=== PATIENT | male | born 1995 | race African-American/Black ===

== ENCOUNTER 2022-01-09 10:36 | Emergency (ER) | payer OTHER ==
[2022-01-09] MEDS ORDERED: ONDANSETRON 4 MG/2 ML VIAL IVP STA (10:57)
[2022-01-09] MEDS ORDERED: SODIUM CHLORIDE 0.9% 1,000 ML IV STA (10:57)
[2022-01-09] MEDS ORDERED: KETOROLAC 15 MG/ML 1 ML VIAL IVP STA (10:57)
--- NOTE | 2022-01-09 11:01 | ED ---
General Adult HPI - General Stated complaint: Testicular & back pain Time Seen by Provider: 01/09/22 10:46 Source: patient, RN notes reviewed, old records reviewed - History of Present Illness Initial comments: This is a 26-year-old male who presents emergency Department the aunt was because he had sudden onset of severe right testicle pain as well as right back pain. Patient states she was just lying around when it occurred patient denies any similar symptoms in the past. Patient denies any dysuria hematuria or urinary frequency patient states he feels the urge to urinate but is unable to cope. Patient states is no pain with palpating the testicle. He does not notice any swelling of the testicle or any masses. Patient denies any fever chills. Patient denies any abdominal pain. Patient states he started vomiting as the pain was so severe earlier. Patient states remains nauseated. - Related Data Home Medications Medication Instructions Recorded Confirmed Albuterol Nebulized [Ventolin 2.5 mg INHALATION RT-Q6H PRN 08/28/13 02/27/15 Nebulized] Fluticasone Propionate [Flovent 1 puff IH RT-BID PRN 08/28/13 02/27/15 Diskus] Triamcinolone 0.1% Cream [Kenalog 1 applic TOPICAL BID PRN 02/27/15 02/27/15 0.1% Cream] Previous Rx's Medication Instructions Recorded Ketorolac [Toradol] 10 mg PO Q6HR #15 tab 01/09/22 Tamsulosin [Flomax] 0.4 mg PO DAILY #10 cap 01/09/22 Allergies Allergy/AdvReac Type Severity Reaction Status Date / Time Fish Containing Products Allergy Anaphylaxis Verified 02/27/15 18:14 Review of Systems ROS Statement: Those systems with pertinent positive or pertinent negative responses have been documented in the HPI. ROS Other: All systems not noted in ROS Statement are negative. Past Medical History Past Medical History: Asthma History of Any Multi-Drug Resistant Organisms: None Reported Past Surgical History: No Surgical Hx Reported Past Psychological History: No Psychological Hx Reported Past Alcohol Use History: None Reported Past Drug Use History: None Reported General Exam - General Exam Comments Initial Comments: GENERAL: Patient is well-developed and well-nourished. Patient is nontoxic and well- hydrated and is in moderate distress. ENT: Neck is soft and supple. No significant lymphadenopathy is noted. Oropharynx is clear. Moist mucous membranes. Neck has full range of motion without eliciting any pain. EYES: The sclera were anicteric and conjunctiva were pink and moist. Extraocular movements were intact and pupils were equal round and reactive to light. Eyelids were unremarkable. PULMONARY: Unlabored respirations. Good breath sounds bilaterally. No audible rales rhonchi or wheezing was noted. CARDIOVASCULAR: There is a regular rate and rhythm without any murmurs gallops or rubs. ABDOMEN: Soft and nontender with normal bowel sounds. No CVA tenderness GENITALIA: On examination of testicles and scrotum there is no tenderness is no masses or swelling there is no erythema noted. Patient's has no lesions in addition no drainage noted. SKIN: Skin is clear with no lesions or rashes and otherwise unremarkable. NEUROLOGIC: Patient is alert and oriented x3. Cranial nerves II through XII are grossly intact. Motor and sensory are also intact. Normal speech, volume and content. Symmetrical smile. MUSCULOSKELETAL: Normal extremities with adequate strength and full range of motion. No lower extremity swelling or edema. No calf tenderness. LYMPHATICS: No significant lymphadenopathy is noted PSYCHIATRIC: Normal psychiatric evaluation. Course Vital Signs 01/09/22 01/09/22 10:55 10:59 Temperature 98.8 F 98.3 F Pulse Rate 98 Respiratory 20 Rate Blood Pressure 103/101 132/88 O2 Sat by Pulse 98 Oximetry Medical Decision Making - Medical Decision Making I reexamined the patient patient states he has no longer any testicular pain. CAT scan showed some mild hydro-ureter on the right and patient quite a bit of blood in the urine. - Lab Data Result diagrams: 01/09/22 11:07 01/09/22 11:07 Lab Results 01/09/22 01/09/22 01/09/22 Range/Units 11:07 11:07 11:07 WBC 7.1 (3.8-10.6) k/uL RBC 4.94 (4.30-5.90) m/uL Hgb 15.0 (13.0-17.5) gm/dL Hct 43.8 (39.0-53.0) % MCV 88.7 (80.0-100.0) fL MCH 30.3 (25.0-35.0) pg MCHC 34.2 (31.0-37.0) g/dL RDW 12.3 (11.5-15.5) % Plt Count 202 (150-450) k/uL MPV 8.8 Neutrophils % 69 % Lymphocytes % 21 % Monocytes % 5 % Eosinophils % 2 % Basophils % 1 % Neutrophils # 5.0 (1.3-7.7) k/uL Lymphocytes # 1.5 (1.0-4.8) k/uL Monocytes # 0.4 (0-1.0) k/uL Eosinophils # 0.2 (0-0.7) k/uL Basophils # 0.1 (0-0.2) k/uL Sodium 139 (137-145) mmol/L Potassium 3.4 L (3.5-5.1) mmol/L Chloride 103 (98-107) mmol/L Carbon Dioxide 21 L (22-30) mmol/L Anion Gap 15 mmol/L BUN 11 (9-20) mg/dL Creatinine 0.97 (0.66-1.25) mg/dL Est GFR (CKD-EPI)AfAm >90 (>60 ml/min/1.73 sqM) Est GFR (CKD-EPI)NonAf >90 (>60 ml/min/1.73 sqM) Glucose 133 H (74-99) mg/dL Calcium 9.4 (8.4-10.2) mg/dL Total Bilirubin 0.8 (0.2-1.3) mg/dL AST 22 (17-59) U/L ALT 17 (4-49) U/L Alkaline Phosphatase 107 (38-126) U/L Total Protein 7.5 (6.3-8.2) g/dL Albumin 4.8 (3.5-5.0) g/dL Amylase 100 (30-110) U/L Lipase 118 (23-300) U/L Urine Color Yellow Urine Appearance Turbid (Clear) Urine pH 8.0 (5.0-8.0) Ur Specific [place] 1.022 (1.001-1.035) Urine Protein Trace H (Negative) Urine Glucose (UA) Negative (Negative) Urine Ketones 3+ H (Negative) Urine Blood Large H (Negative) Urine Nitrite Negative (Negative) Urine Bilirubin Negative (Negative) Urine Urobilinogen 2.0 (<2.0) mg/dL Ur Leukocyte Esterase Negative (Negative) Urine RBC >182 H (0-5) /hpf Urine WBC 3 (0-5) /hpf Amorphous Sediment Many H (None) /hpf Urine Mucus Occasional H (None) /hpf Disposition Clinical Impression: Kidney stone on right side Disposition: HOME SELF-CARE Condition: Good Instructions (If sedation given, give patient instructions): Kidney Stones (ED) Prescriptions: Tamsulosin [Flomax] 0.4 mg PO DAILY #10 cap Ketorolac [Toradol] 10 mg PO Q6HR #15 tab Is patient prescribed a controlled substance at d/c from ED?: No Referrals: None,Stated [Primary Care Provider] - 1-2 days Time of Disposition: 14:04
[2022-01-09 11:20] LABS: Basophils # (A) 0.1 k/uL (0-0.2); Basophils % (A) 1 %; Eosinophils # (A) 0.2 k/uL (0-0.7); Eosinophils % (A) 2 %; HCT 43.8 % (39.0-53.0); Lymphocytes # (A) 1.5 k/uL (1.0-4.8); Lymphocytes % (A) 21 %; MCH 30.3 pg (25.0-35.0); MCHC 34.2 g/dL (31.0-37.0); MCV 88.7 fL (80.0-100.0); Mean Platelet Volume 8.8; Monocytes # (A) 0.4 k/uL (0-1.0); Monocytes % (A) 5 %; Neutrophils % (A) 69 %; Platelet Count 202 k/uL (150-450); RBC 4.94 m/uL (4.30-5.90); RDW 12.3 % (11.5-15.5); WBC 7.1 k/uL (3.8-10.6)
--- NOTE | 2022-01-09 11:26 | XR ---
KUB. HISTORY: Abdominal pain. COMPARISON: None. TECHNIQUE: 2 upright views of the abdomen were obtained. FINDINGS: The lung bases are clear. There is no free intraperitoneal air beneath the diaphragm. The bowel gas pattern is nonspecific and there is no evidence of obstruction. No suspicious abdominal or pelvic calcifications are seen. The osseous structures are intact. IMPRESSION: Nonspecific abdomen without evidence of free air or obstruction.
[2022-01-09 11:49] LABS: ALT 17 U/L (4-49); AST 22 U/L (17-59); African American GFR (CKD) >90 (>60 ml/min/1.73 sqM); Albumin 4.8 g/dL (3.5-5.0); Alkaline Phosphatase 107 U/L (38-126); Amylase 100 U/L (30-110); Anion Gap 15 mmol/L; Blood Urea Nitrogen 11 mg/dL (9-20); Calcium 9.4 mg/dL (8.4-10.2); Carbon Dioxide 21 mmol/L (22-30); Chloride 103 mmol/L (98-107); Glucose 133 mg/dL (74-99); Lipase 118 U/L (23-300); Non-African American GFR(CKD) >90 (>60 ml/min/1.73 sqM); Potassium 3.4 mmol/L (3.5-5.1); Sodium 139 mmol/L (137-145); Total Bilirubin 0.8 mg/dL (0.2-1.3); Total Protein 7.5 g/dL (6.3-8.2)
--- NOTE | 2022-01-09 12:18 | CT ---
EXAMINATION TYPE: CT abdomen pelvis wo con DATE OF EXAM: 01/09/2022 COMPARISON: 02/27/2015 HISTORY: Abdominal pain CT DLP: 494.4 mGycm Automated exposure control for dose reduction was used. TECHNIQUE: Helical acquisition of images was performed from the lung bases through the pelvis. FINDINGS: Lung bases are clear. No gallstones or gallbladder distention. No organomegaly involving the liver, pancreas, spleen or adrenal glands. No renal calcifications or hydronephrosis. Caliber of the the abdominal aorta is normal. Bowel loops are normal in caliber and no evidence of obstruction. No inflammatory changes identified within the mesentery. No free intraperitoneal air or fluid. No pelvic mass, fluid, abscess or adenopathy. The osseous structures and soft tissues unremarkable. IMPRESSION: No significant abnormality seen.
[2022-01-09] MEDS ORDERED: HYDROmorphone 0.5 MG/0.5 ML SYRINGE IVP STA ×2 (12:24→14:02)
[2022-01-09 13:54] LABS: Amorphous Sediment,Urine Many /hpf; Appearance,Urine Turbid (Clear); Bilirubin,Urine Negative (Negative); Blood,Urine Large (Negative); Color,Urine Yellow; Glucose,Urine (UA) Negative (Negative); Ketones,Urine 3+ (Negative); Leukocyte Esterase,Urine Negative (Negative); Mucus,Urine Occasional /hpf; Nitrite,Urine Negative (Negative); Protein,Urine Trace (Negative); RBC,Urine >182 /hpf (0-5); Specific Gravity,Urine 1.022 (1.001-1.035); WBC,Urine 3 /hpf (0-5)
[2022-01-09] MEDS ORDERED: ACET/COD 300 MG/30 MG STARTER PACK 6 TAB BTL PO STA (14:05)
[2022-01-09 14:19] VITALS: BP 136/80; PULSE 88; RESP 18; TEMP 98.6
== END 2022-01-09 14:28 | disposition home or self-care (01) ==
LOC: EC 10:36
DX: N20.0 Calculus of kidney (principal); J45.909 Unspecified asthma, uncomplicated; Z91.013 Allergy to seafood; Z79.51 Long term (current) use of inhaled steroids
CPT/HCPCS: 36415; 80053; 82150; 83690; 85025; 81001; 74018; 74176; 96374; 96375; 96376; 96361; 99284; J2405; J1885; J1170